=== PATIENT | female | born 1960 | race Caucasian/White ===

== ENCOUNTER 2023-08-16 12:06 | Inpatient (IN) ==
[2023-08-16 13:02] LABS: Basophils # (auto) 0.04 K/uL (0.00-0.20); Basophils % (auto) 0.4 %; Eosinophils # (auto) 0.62 K/uL (0.00-0.50); Eosinophils % (auto) 6.4 %; Hematocrit (blood only) 33.7 % (37.0-47.0); Immature Granulocytes # (auto) 0.03 K/uL (0.01-0.20); Immature Granulocytes % (auto) 0.3 %; Lymphocytes # (auto) 1.66 K/uL (1.20-3.40); Lymphocytes % (auto) 17.2 %; Mean Corpuscular Hemoglobin 30.1 pg (25.0-34.0); Mean Corpuscular Hgb Conc 32.6 g/dL (32.0-36.0); Mean Corpuscular Volume 92.3 fL (80.0-100.0); Mean Platelet Volume 8.7 fL (9.4-12.4); Monocytes # (auto) 0.94 K/uL (0.11-0.59); Monocytes % (auto) 9.7 %; Neutrophils # (auto) 6.37 K/uL (1.40-6.50); Platelet Count 349 K/uL (130-400); RDW Coefficient of Variation 13.2 % (11.5-14.5); RDW Standard Deviation 44.8 fL (36.4-46.3); Red Blood Count 3.65 M/uL (4.20-5.40); White Blood Count 9.66 K/ul (4.8-10.8)
[2023-08-16] MEDS ORDERED: SODIUM CHLORIDE 0.9% 500 ML IV ONE (13:06)
--- NOTE | 2023-08-16 13:09 | Emergency Department Note ---
Impression & Plan Cellulitis ADMIT ED Provider Note HPI: History obtained from patient. The patient is a 62-year-old female with history of breast cancer, status post left-sided mastectomy on 07/17/[address] Billie Grubbs, presents emergency department with chief complaint of purulent drainage from her mastectomy wounds as well as a swelling increasingly painful mass to the left axillary area that has been increasing in size for the past 3 days. Patient presents with her daughter at the bedside, she states that she has had some increased drainage from her mastectomy scar on the left side over about the past 4 to 5 days with purulent material being expelled from the wound. He did go shopping yesterday and were walking quite often and the red lump inside her left axilla seems to becoming increasingly irritated and was more painful and swollen this morning when she woke up. On arrival here to the ED the patient is hemodynamically stable, she is afebrile on arrival, she is saturating well on room air on my initial assessment. ROS: - Per HPI Differential Diagnosis: Wound cellulitis, abscess, gas-forming infection/necrotizing fasciitis, DVT, lymphadenopathy, amongst other potential pathologies. *Outpatient medications and allergy history reviewed. *Pertinent external medical records reviewed -plastic surgery outpatient note dated 07/31/2023 PE: General: Alert, morbidly obese HEENT: Normocephalic, trachea midline Eyes: Extraocular eye movement is intact, no scleral erythema Pulmonary: Clear to auscultation bilaterally, no wheezing Cardio: Regular rate and rhythm GI: Abdomen is soft to palpation : No suprapubic tenderness MSK: No evidence of trauma or malformation of the extremities, no edema, there is a large tender mass to the anterior/axillary aspect of the left upper extremity without any purulent drainage Skin: Erythema with purulence centrally to surgical wounds noted in the area of left breast excision, there is a large tender mass to the anterior/axillary aspect of the left upper extremity without any purulent drainage, there is no crepitus to palpation of the surrounding soft tissues or pain out of proportion to exam Neuro: Alert, no focal deficits Psychiatric: Cooperative INDEPENDENT INTERPRETATIONS: cafeteria monitor: (As interpreted by myself): - An order was placed for continuous cardiac monitoring - Patient was noted to be in sinus rhythm with a rate of 95 Interventions provided in ED: -IV vancomycin, IV cefepime, IV fluid bolus Medical Decision Making: Shortly after patient arrived, IV was established and lab work ordered, patient was placed on monitoring tech. Lab work shows no leukocytosis, hemoglobin is stable at 11.0, platelet count is normal, CMP does not show any evidence of any critical findings. No acute kidney injury, procalcitonin is low. CT imaging of the left upper extremity was obtained, this does show evidence of a large abscess in the medial aspect of the proximal left upper extremity as well as a second abscess noted within the chest wall. There is surrounding cellulitis, small focus of gas is also noted by the interpreting radiologist however patient did recently have a drain removed. Clinical exam is not consistent with necrotizing fasciitis at this time. I discussed the patient's presentation and CT imaging results with on-call general surgery, Dr. Frances, who did review the patient's CT imaging. At this time he is recommending admission and administration of IV antibiotics and general surgery will be on consult for likely operative debridement tomorrow. Patient and her daughter at the bedside are in agreement to this plan, case was then discussed with the on-call midlevel provider for the hospitalist service, Van Ram PA-C, and the patient was placed for admission in stable condition to the service of Dr. Byers. Consultants/Discussions held with other healthcare providers: -General surgery, Dr. Frances -Hospitalist service, Van Ram PA-C / Dr. Byers Disposition discussion held by myself with: -Patient and daughter at bedside Diagnosis: 1. Surgical wound cellulitis, acute 2. Chest wall abscess, acute, associated with surgical wound 3. Left upper extremity abscess, acute, associated with surgical wound 4. History of breast cancer status postmastectomy, left-sided Disposition: Admission Alok Cazares DO Emergency Medicine Past Med/Surg History Medical History (Updated 08/16/23 @ 15:52 by Alok Cazares DO) History of chemotherapy Last chemo 05/2023 History of COVID-19 2019 and 2020- no hosp; resolved HTN (hypertension) Seizures last seizure occurred in the . Breast cancer Left- dx'd 01/2023 (Triple negative breast cancer) R 1980-mastectomy Arthritis Surgical History (Updated 08/16/23 @ 15:10 by Van Ram PA-C) History of left mastectomy Left Breast Mastectomy with [employer] Localization, Left Axillary Lymph Node and [place]estone Node Biopsy(Left) - Millie Jackson DO Port-A-Cath in place (03/06/23) Insertion Access Port(Left) - Millie Jackson DO History of breast biopsy History of hysterectomy (07/17/23) H/O breast implant 1980 - Rt H/O mastectomy 1980 - Rt Family History Father Diabetes Heart disease Leukemia Hypertension Stroke Mother Diabetes Heart disease Kidney disease Hypertension Grandmother Stroke Other No family history of adverse response to anesthesia Social History Smoking Status: Never smoker Second Hand Exposure: Yes (in the past); Do You Dip or Chew Tobacco: No; Hx Alcohol Use: No Hx Substance Use: No Preferred Language: Albanian Communication Ability: Effective Visual Impairment: No Limitations Floor Coverer Required: No Beliefs That Will Affect Care: None Current Living Situation: Family Feels Safe at Home: Yes Assistive Devices: Glasses Allergies Allergies Allergy/AdvReac Type Severity Reaction Status Date / Time dexamethasone [From Decadron] Allergy Severe Hives Verified 08/05/23 10:12 iodine Allergy Unknown Hives Verified 08/05/23 10:12 prednisone Allergy Unknown Hives Verified 08/05/23 10:12 Home Meds Home Medications Medication Instructions Recorded Confirmed aspirin 81 mg tablet,delayed 81 mg PO DAILY 01/22/23 08/16/23 release lisinopril 10 1 tab PO QAM 01/22/23 08/16/23 mg-hydrochlorothiazide 12.5 mg tablet docusate sodium 100 mg capsule 100 mg PO DAILY 06/30/23 08/16/23 (Colace) Previous Rx's Medication Instructions Recorded collagenase clostridium histo. 250 1 applic topical DAILY #90 grams 07/31/23 unit/gram topical ointment (Santyl) Results & Data (ED) Vital Signs Vital Signs - 24 hr 08/16/23 12:10 08/16/23 12:59 08/16/23 14:06 Temperature 36.3 C L 36.4 C L Temperature Source Oral Oral Pulse Rate 91 H Pulse Rate [Left Finger] 94 H 88 Respiratory Rate 19 16 16 Respiratory Effort / Characteristics Non-Labored Spontaneous Non-Labored Spontaneous Respiratory Depth Normal Normal Respiratory Pattern Regular Regular Blood Pressure 136/80 Blood Pressure [Right Arm] 108/76 Blood Pressure Mean 98 Blood Pressure Mean [Right Arm] 86 Blood Pressure Position [Right Arm] Lying Pulse Oximetry 96 98 98 Oxygen Delivery Method Room Air Room Air Room Air Sepsis Recent Fever Within 48 Hours No Sepsis New/Unexplained Change in Mental Status N/A Sepsis Action Taken by Nursing No Action Required 08/16/23 15:39 Temperature Temperature Source Pulse Rate Pulse Rate [Left Finger] 93 H Respiratory Rate 18 Respiratory Effort / Characteristics Non-Labored Spontaneous Respiratory Depth Normal Respiratory Pattern Blood Pressure Blood Pressure [Right Arm] 132/62 Blood Pressure Mean Blood Pressure Mean [Right Arm] 85 Blood Pressure Position [Right Arm] Pulse Oximetry 100 Oxygen Delivery Method Room Air Sepsis Recent Fever Within 48 Hours Sepsis New/Unexplained Change in Mental Status Sepsis Action Taken by Nursing Laboratory Data 08/16/23 12:46 08/16/23 12:46 Lab Results 08/16/23 Range/Units 12:46 WBC 9.66 (4.8-10.8) K/ul RBC 3.65 L (4.20-5.40) M/uL Hgb 11.0 L (12.0-16.0) g/dl Hct 33.7 L (37.0-47.0) % MCV 92.3 (80.0-100.0) fL MCH 30.1 (25.0-34.0) pg MCHC 32.6 (32.0-36.0) g/dL RDW Std Deviation 44.8 (36.4-46.3) fL RDW Coeff of Ronnie 13.2 (11.5-14.5) % Plt Count 349 (130-400) K/uL MPV 8.7 L (9.4-12.4) fL Immature Gran % (Auto) 0.3 % Neut % (Auto) 66.0 % Lymph % (Auto) 17.2 % [place] % (Auto) 9.7 % Eos % (Auto) 6.4 % Baso % (Auto) 0.4 % Neut # (Auto) 6.37 (1.40-6.50) K/uL Lymph # (Auto) 1.66 (1.20-3.40) K/uL [place] # (Auto) 0.94 H (0.11-0.59) K/uL Eos # (Auto) 0.62 H (0.00-0.50) K/uL Baso # (Auto) 0.04 (0.00-0.20) K/uL Immature Gran # (Auto) 0.03 (0.01-0.20) K/uL PT 10.9 (9.0-12.0) Seconds INR 1.0 (0.9-1.1) APTT 31.1 H (21.0-31.0) Seconds PTT Ratio 1.1 Sodium 139 (136-145) mmol/L Potassium 3.6 (3.5-5.1) mmol/L Chloride 103 (98-107) mmol/L Carbon Dioxide 28 (21-32) mmol/L Anion Gap 8 (3-11) BUN 14 (6-23) mg/dl Creatinine 0.78 (0.6-1.2) mg/dl Est Cr Clr Drug Dosing 110.1 ml/min Est GFR ( Amer) 93.8 ml/min Est GFR (Non-Af Amer) 80.9 ml/min BUN/Creatinine Ratio 17.9 (10-20) Glucose 102 H (70-99(Fasting)) mg/dl Calcium 10.1 (8.6-10.3) mg/dl Total Bilirubin 0.6 (0.2-1.0) mg/dl AST 13 (13-39) U/L ALT 11 (7-52) U/L Alkaline Phosphatase 54 (34-104) U/L Total Protein 7.3 (6.0-8.3) gm/dl Albumin 3.9 (3.4-5.0) gm/dl Globulin 3.4 (2.5-4.0) gm/dl Albumin/Globulin Ratio 1.1 (0.9-2) Procalcitonin < 0.05 (0-0.5) ng/ml Administered Medications Discontinued Medications Sodium Chloride (Nss) 500 mls @ 999 mls/hr IV .Q31M ONE Stop: 08/16/23 13:36 Last Infusion: 08/16/23 14:42 Dose: Infused Documented By: Admin: 08/16/23 13:29 Dose: 999 mls/hr Documented By: CPB Cefepime HCl (Maxipime) 2,000 mg in 20 mls @ 5 mls/min IV NOW STA; Protocol Stop: 08/16/23 14:57 Last Admin: 08/16/23 15:34 Dose: 5 mls/min Documented By: FABY Ioversol (Optiray 320 500ml) 94 ml IV ONCE ONE Stop: 08/16/23 13:43 Last Admin: 08/16/23 13:42 Dose: 94 ml Documented By: LOS Imaging Data Radiologist's Impression: Humerus CT 08/16/23 13:02 CT humerus LT w con CLINICAL HISTORY: UE mass eval for infection/abscess TECHNIQUE: Multidetector row helical CT of the left humerus was performed without intravenous contrast. Coronal and sagittal reformations were obtained. Automated dose lowering techniques and/or adjustment according to patient size were utilized for this examination. CT DOSE: 557.87 mGy.cm Comparison: None available at the time of this dictation. FINDINGS: There is a fluid collection measuring 40 x 26 x 36 mm in the medial aspect of the left upper arm with mild surrounding enhancement and surrounding soft tissue edema and skin thickening. There is also a 9 x 8 x 25 mm fluid collection in the lateral chest wall. No acute fractures and the joints are unremarkable. No joint effusion is seen. A port catheter is seen in the left chest wall. A tiny focus of gas is noted in the chest wall. IMPRESSION: Abscess is in the lateral chest wall and medial upper arm with associated cellulitis.. No evidence of bony involvement. Tiny focus of gas in the chest wall may represent gas-forming infection, less likely postsurgical given time course. ACT 112: Negative or not required by law. Electronically signed by: Rufino Prater M.D. 08/16/2023 2:25 PM Discharge Plan Visit Data Chief Complaint: Skin Problem Stated Complaint: LUMP UNDER LEFT ARM S/P MASTECTOMY ED Provider: Alok Cazares Discharge Problem: Cellulitis Forms Stand Alone Forms: My [facility] [employer] Prescriptions Prescriptions: No Action docusate sodium [Colace] 100 mg capsule 100 mg PO DAILY aspirin 81 mg tablet,delayed release (DR/EC) 81 mg PO DAILY Hold Instructions: Resume on 03/09/23. May resume on Thursday if you do not notice heavy swelling or bruising at the surgical site. lisinopril-hydrochlorothiazide 10-12.5 mg tablet 1 tab PO QAM Santyl 250 unit/gram ointment 1 applic topical DAILY Qty: 90 0RF Referrals Referrals: Jose Antonio Fraire [Primary Care Provider] - Discharge Problem: Cellulitis Qualifiers: Site of cellulitis: extremity Site of cellulitis of extremity: axilla L aterality: left Qualified Code(s): L03.112 - Cellulitis of left axilla
[2023-08-16 13:20] LABS: Albumin Globulin Ratio 1.1 (0.9-2); Albumin Level 3.9 gm/dl (3.4-5.0); BUN Creatinine Ratio 17.9 (10-20); Bilirubin,Total 0.6 mg/dl (0.2-1.0); Calcium 10.1 mg/dl (8.6-10.3); Creatinine Clr Calc Pharmacy 110.1 ml/min; Est GFR (African American) 93.8 ml/min; Est GFR (Non-African American) 80.9 ml/min; Globulin 3.4 gm/dl (2.5-4.0); Potassium 3.6 mmol/L (3.5-5.1); Total Protein 7.3 gm/dl (6.0-8.3)
[2023-08-16 13:29] LABS: Partial Thromboplastin Ratio 1.1; Partial Thromboplastin Time 31.1 Seconds (21.0-31.0); Prothrombin Time 10.9 Seconds (9.0-12.0)
[2023-08-16] MEDS ORDERED: OPTIRAY 320 500ml IV ONE (13:42)
--- NOTE | 2023-08-16 14:28 | CT Scan Report ---
CT humerus LT w con CLINICAL HISTORY: UE mass eval for infection/abscess TECHNIQUE: Multidetector row helical CT of the left humerus was performed without intravenous contras t. Coronal and sagittal reformations were obtained. Automated dose lowering techniques and/or adjustm ent according to patient size were utilized for this examination. CT DOSE: 557.87 mGy.cm Comparison: None available at the time of this dictation. FINDINGS: There is a fluid collection measuring 40 x 26 x 36 mm in the medial aspect of the left upper arm with mild surrounding enhancement and surrounding soft tissue edema and skin thickening. There is also a 9 x 8 x 25 mm fluid collection in the lateral chest wall. No acute fractures and the joints are unrem arkable. No joint effusion is seen. A port catheter is seen in the left chest wall. A tiny focus of gas is noted in the chest wall. IMPRESSION: Abscess is in the lateral chest wall and medial upper arm with associated cellulitis.. No evidence of bony involvement. Tiny focus of gas in the chest wall may represent gas-forming infection, less like ly postsurgical given time course. ACT 112: Negative or not required by law. Electronically signed by: Rufino Prater M.D. 08/16/2023 2:25 PM
[2023-08-16] MEDS ORDERED: VANCOMYCIN HCL 2,750 MG in SODIUM CHLORIDE 0.9% 500 ML IV ONE (14:54)
[2023-08-16] MEDS ORDERED: VANCOMYCIN CONSULT ACTIVE PRN ×2 (14:54→18:01)
[2023-08-16] MEDS ORDERED: CEFEPIME 2,000 MG/20 ML VIAL IV STA (14:54)
--- NOTE | 2023-08-16 15:14 | History & Physical Report ---
Date of Service August 16, 2023 Assessment & Plan (1) S/P left mastectomy: Plan: On 07/17/[address] Billie Grubbs Left mastectomy site redness, swelling, purulent drainage x3 days Drain pulled [address] noted 2 abscesses (Lateral chest wall and medial upper arm) with associated cellulitis; also noted tiny focus of gas in the chest wall Started on vancomycin and cefepime in the ED Dr. Frances was contacted; Dr. Victor M Grubbs will not be back until Thursday Plan is to go to the OR either Friday 08/17 or Saturday 08/18 Wound culture pending No leukocytosis; afebrile; PCT WNL Vancomycin 2000 mg IV q12h; Vanco consult Cefepime 2000 mg IV q8h Clindamycin 600 mg IV q8h Probiotic 2 times daily Acetaminophen 650 mg p.o. as needed for pain/fever Hold aspirin; taken for primary prevention A.m. CBC, BMP N.p.o. at midnight (2) Triple negative breast cancer: Plan: Right -1981 mastectomy Left - Dx 01/2023; ER neg; BRCA gene mutation neg; s/p mastectomy on 07/17/23 (3) Hypertension: Plan: Hold lisinoprilhydrochlorothiazide before going to the OR Plan [facility]: [facility] Regular diet, then n.p.o. at midnight VTE PPx: SCDs (will hold chemical DVT PPx in the event she goes to the OR on 08/17) History of Present Illness Chief Complaint: L mastectomy surgical site infection Primary Care Provider: Jose Antonio Ramirez is a pleasant 62-year-old female with PMH of breast cancer. She presented for purulent drainage from her left mastectomy site, with increased pain and swelling in the left axilla x3 days. Patient is s/p left-sided mastectomy on 07/17/[address] Billie Grubbs. Patient had drain removed on 08/05 and then noticed a "white pocket" in the left axilla on 08/07. She started using collagenase SANTYL cream on the . She then started to note purulent yellowish, greenish drainage on 08/09, that would run down her arm. Patient was back Thursday shopping on 08/14; she had dressing/tape over the incision site and wore a soft bra to give thing in place; but when she changed the dressing on Thursday she noticed a "baseball sized" red lump on her left upper arm. At present, she notes no pain but describes it as left upper arm "tightness". She denies radiation; no numbness running down the arm. She took Advil and Motrin last night, which helped. She also has been using a bacitracin/neomycin ointment "Vitacilina", which she last applied this morning. No sick contacts. She denies tobacco/alcohol use. Vital stable at time of admission. ED course: Vancomycin 2750 mg IV Cefepime 2000 mg IV NSS 500 mL ROS: Patient endorses cold intolerance, mental fog, back pain (which patient attributes to sitting position with recent travel), swelling in feet / neuropathy, skin irritation (skin is "like paper" per daughter), constipation, neuropathy in the legs (from the knees down) Patient denies fevers, chills, night-sweats, chest pain, cough, SOB, abdominal pain, N/V/D, urinary s/s, burning with urination. Allergies Allergy/AdvReac Type Severity Reaction Status Date / Time dexamethasone [From Decadron] Allergy Severe Hives Verified 08/05/23 10:12 iodine Allergy Unknown Hives Verified 08/05/23 10:12 prednisone Allergy Unknown Hives Verified 08/05/23 10:12 Home Medications Medication Instructions Recorded Confirmed Type aspirin 81 mg tablet,delayed 81 mg PO DAILY 01/22/23 08/16/23 History release lisinopril 10 1 tab PO QAM 01/22/23 08/16/23 History mg-hydrochlorothiazide 12.5 mg tablet docusate sodium 100 mg capsule 100 mg PO DAILY 06/30/23 08/16/23 History (Colace) collagenase clostridium histo. 250 1 applic topical DAILY #90 grams 07/31/23 08/16/23 Rx unit/gram topical ointment (Santyl) Past Med/Surg History Medical History (Updated 08/16/23 @ 15:52 by Alok Cazares DO) History of chemotherapy Last chemo 05/2023 History of COVID-19 2019 and 2020- no hosp; resolved HTN (hypertension) Seizures last seizure occurred in the . Breast cancer Left- dx'd 01/2023 (Triple negative breast cancer) R 1980-mastectomy Arthritis Surgical History (Updated 08/16/23 @ 15:10 by Vna Ram PA-C) History of left mastectomy Left Breast Mastectomy with [facility] Laboratory Director Localization, Left Axillary Lymph Node and [place] Node Biopsy(Left) - Millie Jackson DO Port-A-Cath in place (03/06/23) Insertion Access Port(Left) - Millie Jackson DO History of breast biopsy History of hysterectomy (07/17/23) H/O breast implant 1980 - Rt H/O mastectomy 1980 - Rt Family History Father Diabetes Heart disease Leukemia Hypertension Stroke Mother Diabetes Heart disease Kidney disease Hypertension Grandmother Stroke Other No family history of adverse response to anesthesia Social History Smoking Status: Never smoker Second Hand Exposure: Yes (in the past); Do You Dip or Chew Tobacco: No; Hx Alcohol Use: No Hx Substance Use: No Preferred Language: Romanian Communication Ability: Effective Visual Impairment: No Limitations Drawing Operator Required: No Beliefs That Will Affect Care: None Current Living Situation: Family Feels Safe at Home: Yes Assistive Devices: Glasses Review of Systems 2 Review of Systems: See HPI above Physical Exam 2 Physical Exam: General: no acute distress; non-toxic appearing; well-nourished; cooperative HEENT: normocephalic, atraumatic; no scleral icterus; PERRLA w/ EOMs intact; moist mucus membrane; vision and hearing grossly intact Neck: supple; no lymphadenopathy; trachea midline Skin: warm, dry without signs of tenting; no cyanosis; no rashes, bruising, lesions, or erythema noted CV: Double mastectomy; chest wall NTP; RRR; S1/S2 normal; no murmurs/rubs/gallops; pulses intact and symmetric at radial, DP, and PT Lungs: no acute respiratory distress; symmetrical chest wall expansion; clear breath sounds across all lung del real w/o adventitious sounds; no wheezing Left breast/surgical site: Purulent drainage is noted from the site including a 2in eschar at the left axilla; left upper arm has baseball sized redness, swelling, and firmness, and is warm to touch (see photo below); no crepitus on palpation; no subcutaneous emphysema on palpation Left hand: Pulse intact in the radial/ulnar; patient demonstrates ability to wiggle fingers; sensation is grossly intact in the left arm ABD: Soft, NTP; BS present; no rebound/guarding; no ascites; no distention; negative CVA tenderness MSK: no tics or fasciculations; nonpitting edema in the LEs B/L, nonerythematous Neuro: A&Ox3; normal mood and affect; fluent speech; no focal deficits; sensation grossly intact Results & Data Results & Data Vital Signs (Past 12 Hours) Vital Signs Temp Pulse Pulse Resp BP BP Pulse Ox 08/16/23 14:06 88 16 98 08/16/23 12:59 36.4 C L 94 H 16 108/76 98 08/16/23 12:10 36.3 C L 91 H 19 136/80 96 O2 Del Method 08/16/23 14:06 Room Air 08/16/23 12:59 Room Air 08/16/23 12:10 Room Air Laboratory Results Abnormal lab results 08/16/23 Range/Units 12:46 RBC 3.65 L (4.20-5.40) M/uL Hgb 11.0 L (12.0-16.0) g/dl Hct 33.7 L (37.0-47.0) % MPV 8.7 L (9.4-12.4) fL [place] # (Auto) 0.94 H (0.11-0.59) K/uL Eos # (Auto) 0.62 H (0.00-0.50) K/uL APTT 31.1 H (21.0-31.0) Seconds Glucose 102 H (70-99(Fasting)) mg/dl Diagnostic Findings Humerus CT 08/16/23 13:02 CT humerus LT w con CLINICAL HISTORY: UE mass eval for infection/abscess TECHNIQUE: Multidetector row helical CT of the left humerus was performed without intravenous contrast. Coronal and sagittal reformations were obtained. Automated dose lowering techniques and/or adjustment according to patient size were utilized for this examination. CT DOSE: 557.87 mGy.cm Comparison: None available at the time of this dictation. FINDINGS: There is a fluid collection measuring 40 x 26 x 36 mm in the medial aspect of the left upper arm with mild surrounding enhancement and surrounding soft tissue edema and skin thickening. There is also a 9 x 8 x 25 mm fluid collection in the lateral chest wall. No acute fractures and the joints are unremarkable. No joint effusion is seen. A port catheter is seen in the left chest wall. A tiny focus of gas is noted in the chest wall. IMPRESSION: Abscess is in the lateral chest wall and medial upper arm with associated cellulitis.. No evidence of bony involvement. Tiny focus of gas in the chest wall may represent gas-forming infection, less likely postsurgical given time course. ACT 112: Negative or not required by law. Electronically signed by: Rufino Prater M.D. 08/16/2023 2:25 PM Code Status & VTE Plan Code Status DNR/DNI VTE Prophylaxis Plan VTE Prophylaxis will be ordered: Yes Supervising Physician Co-Signing Physician Notes Patient seen and examined, chart reviewed, case discussed with AGATHA Davis and I agree with the assessment and plan as above except as otherwise noted Labs and images reviewed Ashley is a 62-year-old female with a past medical history of breast cancer s/p L mastectomy on 07/17/2023. She was doing well and recovering well until approximately 1 week ago when she started using a Centyl cream. She reports that she had some yellowish discharge with this but attributes this to the cream. Following this was doing very well up until last night when she felt like she could not get warm. She noticed just in the last day that she has left proximal inner arm swelling which is new and with overlying erythema, and she has had foul-smelling drainage from the left breast surgical site which has been slowly closing (see image above). She has not had fevers. She has not had chills or night sweats. She otherwise feels well other than some of the pressure in her arm. On exam site is as pictured above. No crepitus or subcu emphysema is appreciated. Is normotensive, heart rate is regular slightly tachycardic. No acute distress. Her drain was removed at follow-up appointment 08/05/2023. CT shows an abscess in the lateral chest wall and upper arm with associated cellulitis without ostial involvement. Tiny focus of gas is noted on the left chest wall, drain was removed 10 days ago potential gas-forming infection is not excluded. Agree with broad coverage of antibiotics cefepime/vancomycin/clindamycin as above, surgery has been consulted and anticipate operative intervention 08/17 or 08/18. N.p.o. at midnight. Agree with assessment and management as above. Lillian Lord daughter is available for updates at work at : [phone]. Works at [employer], ask for Lillian at the switchboard. PG Care Time/CCT Total # of Minutes Spent Total Time Spent with Patient: Total time spent is greater than 50% in coordination of care (as documented) at patient's floor/unit and/or counseling patient: C[place] [address] INT INP/OBS CARE 2/55MIN Patient Type Established Medical Decision Making Moderate Complexity Diagnoses S/P left mastectomy Z90.12 Triple negative breast cancer C50.919 Hypertension I10
[2023-08-16 16:43] LABS: Magnesium 1.5 mg/dl (1.7-2.4)
--- NOTE | 2023-08-16 17:00 | Surgery Consultation ---
Date of Consultation August 16, 2023 Assessment & Plan (1) Cellulitis: 62-year-old female with late presenting surgical site infection with cellulitis and developing abscess in the left axilla. Patient admitted to the medicine service, appreciate their assistance with this Continue IV antibiotic Likely plan for incision and drainage in the operating room on Thursday with Dr. Billie Grubbs She can be made n.p.o. tonight in case we need to take her to the OR sooner Surgery will follow, call with questions or concern (2) S/P left mastectomy: (3) Triple negative breast cancer: History of Present Illness History of Present Illness 62-year-old female with recent history of mastectomy and x-ray lymph node biopsy on the left by Dr. Billie Grubbs 1 month ago, presented with cellulitis. She had the drains pulled about a week or 2 ago, started having some drainage and redness along the area. She has been followed in the clinic for this. Over the weekend things got significantly worse and she had swelling into her left axilla and left upper arm. CT scan was performed and showed a fluid collection is consistent with an abscess in her left axilla. No fevers. Allergies Allergy/AdvReac Type Severity Reaction Status Date / Time dexamethasone [From Decadron] Allergy Severe Hives Verified 08/05/23 10:12 iodine Allergy Unknown Hives Verified 08/05/23 10:12 prednisone Allergy Unknown Hives Verified 08/05/23 10:12 Home Medications Medication Instructions Recorded Confirmed Type aspirin 81 mg tablet,delayed 81 mg PO DAILY 01/22/23 08/16/23 History release lisinopril 10 1 tab PO QAM 01/22/23 08/16/23 History mg-hydrochlorothiazide 12.5 mg tablet docusate sodium 100 mg capsule 100 mg PO DAILY 06/30/23 08/16/23 History (Colace) collagenase clostridium histo. 250 1 applic topical DAILY #90 grams 07/31/23 08/16/23 Rx unit/gram topical ointment (Santyl) Patient History Medical History (Updated 08/16/23 @ 15:52 by Alok Cazares DO) History of chemotherapy Last chemo 05/2023 History of COVID-19 2019 and 2020- no hosp; resolved HTN (hypertension) Seizures last seizure occurred in the . Breast cancer Left- dx'd 01/2023 (Triple negative breast cancer) R 1981-mastectomy Arthritis Surgical History (Updated 08/16/23 @ 15:10 by Van Ram PA-C) History of left mastectomy Left Breast Mastectomy with Char Manager Stars Localization, Left Axillary Lymph Node and [place] Node Biopsy(Left) - Millie Jackson DO Port-A-Cath in place (03/06/23) Insertion Access Port(Left) - Millie Jackson DO History of breast biopsy History of hysterectomy (07/17/23) H/O breast implant 1980 - Rt H/O mastectomy 1980 - Rt Family History Father Diabetes Heart disease Leukemia Hypertension Stroke Mother Diabetes Heart disease Kidney disease Hypertension Grandmother Stroke Other No family history of adverse response to anesthesia Social History Smoking Status: Never smoker Second Hand Exposure: Yes (in the past); Do You Dip or Chew Tobacco: No; Hx Alcohol Use: No Hx Substance Use: No Preferred Language: Danish Communication Ability: Effective Visual Impairment: No Limitations Quill Layer Required: No Beliefs That Will Affect Care: None Current Living Situation: Family Feels Safe at Home: Yes Assistive Devices: Glasses Review of Systems Review of Systems: All systems reviewed & are unremarkable except as noted in HPI & below Physical Exam Constitutional: WD/WN, vitals as above Respiratory: normal respiratory effort, lungs clear to auscultation Cardiovascular: RRR, no murmur, no edema Chest (Breasts): Chest: + vascular access device or port Additional Comments: Significant cellulitis along left chest and left axilla extending down medial portion of left upper arm. There is a firm area consistent with an abscess in her left axilla/left upper medial arm. She also has some fibrinous exudate along her mastectomy incision and at the site of her old drains. This is consistent with a cellulitis and axillary abscess Results & Data Vital Signs (Past 12 Hours) Vital Signs Temp Pulse Pulse Resp BP BP Pulse Ox 08/16/23 15:39 93 H 18 132/62 100 08/16/23 14:06 88 16 98 08/16/23 12:59 36.4 C L 94 H 16 108/76 98 08/16/23 12:10 36.3 C L 91 H 19 136/80 96 O2 Del Method 08/16/23 15:39 Room Air 08/16/23 14:06 Room Air 08/16/23 12:59 Room Air 08/16/23 12:10 Room Air Laboratory Results Laboratory Results - last 24 hr 08/16/23 12:46 WBC 9.66 RBC 3.65 L Hgb 11.0 L Hct 33.7 L MCV 92.3 MCH 30.1 MCHC 32.6 RDW Std Deviation 44.8 RDW Coeff of Ronnie 13.2 Plt Count 349 MPV 8.7 L Immature Gran % (Auto) 0.3 Neut % (Auto) 66.0 Lymph % (Auto) 17.2 [place] % (Auto) 9.7 Eos % (Auto) 6.4 Baso % (Auto) 0.4 Neut # (Auto) 6.37 Lymph # (Auto) 1.66 [place] # (Auto) 0.94 H Eos # (Auto) 0.62 H Baso # (Auto) 0.04 Immature Gran # (Auto) 0.03 PT 10.9 INR 1.0 APTT 31.1 H PTT Ratio 1.1 Sodium 139 Potassium 3.6 Chloride 103 Carbon Dioxide 28 Anion Gap 8 BUN 14 Creatinine 0.78 Est Cr Clr Drug Dosing 110.1 Est GFR ( Amer) 93.8 Est GFR (Non-Af Amer) 80.9 BUN/Creatinine Ratio 17.9 Glucose 102 H Calcium 10.1 Magnesium 1.5 L Total Bilirubin 0.6 AST 13 ALT 11 Alkaline Phosphatase 54 Total Protein 7.3 Albumin 3.9 Globulin 3.4 Albumin/Globulin Ratio 1.1 Procalcitonin < 0.[address] personally reviewed and interpreted and agree with the assessment of left axillary and medial arm abscess and surrounding cellulitis. CLINICAL HISTORY: UE mass eval for infection/abscess TECHNIQUE: Multidetector row helical CT of the left humerus was performed without intravenous contrast. Coronal and sagittal reformations were obtained. Automated dose lowering techniques and/or adjustment according to patient size were utilized for this examination. CT DOSE: 557.87 mGy.cm Comparison: None available at the time of this dictation. FINDINGS: There is a fluid collection measuring 40 x 26 x 36 mm in the medial aspect of the left upper arm with mild surrounding enhancement and surrounding soft tissue edema and skin thickening. There is also a 9 x 8 x 25 mm fluid collection in the lateral chest wall. No acute fractures and the joints are unremarkable. No joint effusion is seen. A port catheter is seen in the left chest wall. A tiny focus of gas is noted in the chest wall. IMPRESSION: Abscess is in the lateral chest wall and medial upper arm with associated cellulitis.. No evidence of bony involvement. Tiny focus of gas in the chest wall may represent gas-forming infection, less likely postsurgical given time course. PG Care Time/CCT Total # of Minutes Spent Total Time Spent with Patient: Total time spent is greater than 50% in coordination of care (as documented) at patient's floor/unit and/or counseling patient: Coding Level of Care Code 89487 OFFICE CONSULT LVL Diagnoses Cellulitis L03.112 Laterality: left Site of cellulitis: extremity Site of cellulitis of extremity: axilla S/P left mastectomy Z90.12 Triple negative breast cancer C50.919 (1) Cellulitis Laterality: left Site of cellulitis: extremity Site of cellulitis of extremity: axilla Qualified Code(s): L03.112 - Cellulitis of left axilla
[2023-08-16] MEDS: CLINDAMYCIN/D5W 600 MG/50 ML BAG IV SCH (19:17)
[2023-08-16] MEDS: ADVANCED PROBIOTIC 1250 MG CAPSULE PO SCH (19:17)
[2023-08-16] MEDS: CEFEPIME 2,000 MG in SYRINGE 0 ML IV SCH (23:03)
[2023-08-17] MEDS: CLINDAMYCIN/D5W 600 MG/50 ML BAG IV SCH ×3 (02:23→18:22)
[2023-08-17] MEDS ORDERED: VANCOMYCIN HCL 1,000 MG in SODIUM CHLORIDE 0.9% 250 ML IV SCH (04:00)
[2023-08-17] MEDS ORDERED: VANCOMYCIN HCL 2,000 MG in SODIUM CHLORIDE 0.9% 500 ML IV SCH (06:00)
[2023-08-17 07:27] LABS: Basophils # (auto) 0.03 K/uL (0.00-0.20); Basophils % (auto) 0.3 %; Eosinophils # (auto) 0.49 K/uL (0.00-0.50); Hematocrit (blood only) 29.5 % (37.0-47.0); Hemoglobin 9.6 g/dl (12.0-16.0); Immature Granulocytes # (auto) 0.03 K/uL (0.01-0.20); Immature Granulocytes % (auto) 0.3 %; Lymphocytes % (auto) 11.3 %; Mean Corpuscular Hemoglobin 29.8 pg (25.0-34.0); Mean Corpuscular Hgb Conc 32.5 g/dL (32.0-36.0); Mean Corpuscular Volume 91.6 fL (80.0-100.0); Mean Platelet Volume 8.8 fL (9.4-12.4); Monocytes % (auto) 10.2 %; Neutrophils # (auto) 7.12 K/uL (1.40-6.50); Neutrophils % (auto) 72.9 %; Platelet Count 319 K/uL (130-400); RDW Coefficient of Variation 13.3 % (11.5-14.5); RDW Standard Deviation 44.6 fL (36.4-46.3); Red Blood Count 3.22 M/uL (4.20-5.40); White Blood Count 9.77 K/ul (4.8-10.8)
[2023-08-17 07:51] LABS: BUN Creatinine Ratio 14.3 (10-20); Calcium 9.4 mg/dl (8.6-10.3); Creatinine Clr Calc Pharmacy 153.2 ml/min; Est GFR (Non-African American) 99.2 ml/min; Potassium 3.5 mmol/L (3.5-5.1)
--- NOTE | 2023-08-17 09:40 | Pharmacy Report ---
Pharmacy PK ABX Note - Date of Service August 17, 2023 - Assessment and Plan Assessment 62 year old F receiving CEFEPIME/VANCOMYCIN/CLINDAMYCIN for treatment of left breast cellulitis/abscess (s/p mastectomy site (07/17)), last chemotherapy 06/13. Pertinent microbiologic data includes: left breast surface would culture pending (gram stain with GPCs), blood cultures pending. Plan for I&D in OR 08/17 or 08/18 Day # 2 of antimicrobial therapy. Plan Vancomycin * Loading dose: 2750 mg IV x 1 * Maintenance dose: 1500 mg IV every 12 hours (increased from 1000mg Q12H due to better probability of reaching goal range and severity of infection) * Regimen is predicted to achieve target AUC/RIZWAN of 400-600 mg/L.hr * Vancomycin level to be ordered if continued beyond 48 hours * Daily serum creatinine ordered. Pharmacy will continue to follow and will adjust dose/frequency as necessary. Thank you. Pharmacy has transitioned to AUC monitoring for vancomycin. AUC/RIZWAN is the preferred PK/PD target and is associated with decreased risk of nephrotoxicity compared to traditional trough targets.
[2023-08-17] MEDS: CEFEPIME 2,000 MG in SYRINGE 0 ML IV SCH ×2 (09:41→16:46)
[2023-08-17] MEDS: DOCUSATE SODIUM 100 MG CAP PO SCH (09:41)
--- NOTE | 2023-08-17 10:42 | Surgery Progress Note ---
<Statement entered by Millie Jackson, DO - 08/18/23 13:23> This case was discussed with the surgical PA Date of Service August 17, 2023 Assessment & Plan (1) Cellulitis: Plan: Patient reports she was seen last week in the office by Dr. Garcia and Dr. Almaraz Is unsure if post operative surgical incision was open as she cannot see the area but does note that she was told it was looking "soft and moist" Reports that left arm cellulitis started on Thursday Left chest post operative incisional area has an open area with some slough and drainage noted Left arm cellulitis warm, tender, with induration Spoke with Dr. Jackson about case, US showing There is a fluid collection measuring 40 x 26 x 36 mm in the medial aspect of the left upper arm with mild surrounding enhancement and surrounding soft tissue edema and skin thickening. There is also a 9 x 8 x 25 mm fluid collection in the lateral chest wall. No acute fractures and the joints are unremarkable. No joint effusion is seen. A port catheter is seen in the left chest wall. A tiny focus of gas is noted in the chest wall WBC 9.7 Will plan for patient to have IR drain the Left fluid collection measuring 40 x 26 x 36 mm in the medial aspect of the left upper arm Will send the fluid for culture Continue IV antibiotics May have diet after IR drain and NPO at MN (2) S/P left mastectomy: Admission and Anticipated Discharge Date Admission Date: August 16, 2023 Subjective Patient reports she was seen last week in the office by Dr. Garcia and Dr. Almaraz Is unsure if post operative surgical incision was open as she cannot see the area but does note that she was told it was looking "soft and moist" Reports that left arm cellulitis started on Thursday Review of Systems Constitutional: no fever and no chills Respiratory: no dyspnea Cardiovascular: no chest pain Integumentary: Left chest post operative incision Physical Exam Physical Exam: alert oriented Constitutional: cooperative and comfortable; no acute distress Respiratory: normal respiratory effort and able to speak in complete sentences; no respiratory distress Cardiovascular: Rate/Rhythm: + tachycardic (98) Chest (Breasts): Additional Comments: Left chest post operative incisional area has an open area with some slough and drainage noted, Left arm cellulitis warm and tender Results & Data Vital Signs (Past 12 Hours) Vital Signs Temp Pulse Resp BP Pulse Ox O2 Del Method 08/17/23 07:13 98.8 F 98 H 20 120/73 95 Room Air Diagnostic Findings [place], [place] [phone] CT Scan Report Patient: ELIZABETH JUNIOR Admit Date: 08/16/23 MR#: [id number] Address1: [id number] [place] [address] Acct ID:[id number] Address2: Date: 1960 [facility] Zip: [place] [address] Age: 62 Location: ED Sex: F Room/Bed: Att Phy: Diagnosis: LUMP UNDER LEFT ARM S/P MASTECTOMY Corie Phy: Jose Antonio Fraire M.D. Service Date: 08/16/23 Fam Phy: Interpreting Phy: Rufino Prater MDAdmit Phy: Ordering Phy: Alok Cazares DO cc: ~ CT humerus LT w con CLINICAL HISTORY: UE mass eval for infection/abscess TECHNIQUE: Multidetector row helical CT of the left humerus was performed without intravenous contrast. Coronal and sagittal reformations were obtained. Automated dose lowering techniques and/or adjustment according to patient size were utilized for this examination. CT DOSE: 557.87 mGy.cm Comparison: None available at the time of this dictation. FINDINGS: There is a fluid collection measuring 40 x 26 x 36 mm in the medial aspect of the left upper arm with mild surrounding enhancement and surrounding soft tissue edema and skin thickening. There is also a 9 x 8 x 25 mm fluid collection in the lateral chest wall. No acute fractures and the joints are unremarkable. No joint effusion is seen. A port catheter is seen in the left chest wall. A tiny focus of gas is noted in the chest wall. IMPRESSION: Abscess is in the lateral chest wall and medial upper arm with associated cellulitis.. No evidence of bony involvement. Tiny focus of gas in the chest wall may represent gas-forming infection, less likely postsurgical given time course. ACT 112: Negative or not required by law. Electronically signed by: Rufino Prater M.D. 08/16/2023 2:25 PM Dictated: 08/16/23 141 Transcribed: 08/16/231415 PG Care Time/CCT Total # of Minutes Spent Total Time Spent with Patient: Total time spent is greater than 50% in coordination of care (as documented) at patient's floor/unit and/or counseling patient: Coding Level of Care Code 87278 Post Operative Follow-Up Diagnoses Cellulitis L03.112 Laterality: left Site of cellulitis: extremity Site of cellulitis of extremity: axilla S/P left mastectomy Z90.12 (1) Cellulitis Laterality: left Site of cellulitis: extremity Site of cellulitis of extremity: axilla Qualified Code(s): L03.112 - Cellulitis of left axilla
[2023-08-17] MEDS ORDERED: ONDANSETRON INJ 2 MG/ML 2 ML VIAL IV PRN (12:34)
--- NOTE | 2023-08-17 12:40 | Ultrasound Report ---
ULTRASOUND-GUIDED LEFT AXILLARY FLUID COLLECTION ASPIRATION CLINICAL HISTORY: Left axillary fluid collection/abscess COMPARISON STUDY: CT scan of the left humerus dated 08/16/2023. PROCEDURE: Procedure and risks were explained. Informed consent was obtained. A final timeout was com pleted. The left axilla was prepped and draped in sterile fashion. 1% buffered lidocaine was utilized for skin anesthesia. Utilizing ultrasound guidance, a 5 Greek safety centesis catheter was advanced into the left axillar y fluid collection/abscess. Ultrasound images were obtained. Approximately 30 mL of purulent fluid wa s aspirated and sent to the lab for culture analysis. The catheter was removed and Band-Aid applied.. The patient tolerated the procedure well. IMPRESSION: Left axillary fluid collection aspiration as detailed above. Performed, dictated, and signed by Julio García PA-C; to be co-signed by Dr. Marcus Clemente. Electronically signed by: Marcus Clemente M.D. 08/17/2023 4:25 PM
[2023-08-17] MEDS: ADVANCED PROBIOTIC 1250 MG CAPSULE PO SCH (12:45)
--- NOTE | 2023-08-17 14:01 | Ultrasound Report ---
LEFT LOWER EXTREMITY VENOUS DOPPLER HISTORY: Acute pain and swelling of the left lower extremity LLE swelling r/o DVT COMPARISON STUDY: None. FINDINGS: There is normal compressibility, flow, and augmentation within the left lower extremity katelyn p venous system. Subcutaneous edema. IMPRESSION: No DVT within the left lower extremity. ACT 112: Negative or not required by law. Electronically signed by: Yuriy Sol M.D. 08/17/2023 2:00 PM
--- NOTE | 2023-08-17 15:11 | Hospitalist Progress Note ---
Date of Service August 17, 2023 Assessment & Plan (1) S/P left mastectomy: Plan: patient had left-sided mastectomy done on 07/17 Drain removed on 08/05 Patient comes back with redness, swelling, purulent discharge for [address] noted 2 abscesses with associated cellulitis Surgery involved Plan is for IR drainage of the abscess today Will keep patient n.p.o. postmidnight in case further procedures tomorrow Continue vancomycin and cefepime and clindamycin (2) Triple negative breast cancer: Plan: Right -1981 mastectomy Left - Dx 01/2023; ER neg; BRCA gene mutation neg; s/p mastectomy on 07/17/23 (3) Hypertension: Plan: Hold lisinoprilhydrochlorothiazide before going to the OR Plan Disposition: MedSurg DNR/DNI Regular diet, then n.p.o. at midnight VTE PPx: SCDs (will hold chemical DVT PPx in the event she goes to the OR on 08/18) Admission and Anticipated Discharge Date Admission Date: August 16, 2023 Subjective when I met the patient earlier today, she was getting ready to go to IR for drainage Of her abscess. Review of Systems Review of Systems: All systems reviewed & are unremarkable except as noted in Subjective Physical Exam Physical Exam: General: Awake, conversant Left breast/surgical site: Purulent discharge is noted from the site. Inner aspect of Left upper arm is red, swollen, firm and warm to touch. Heart: S1, S2/regular rate and rhythm, no murmur rubs or gallops Lungs: Clear to auscultation bilaterally. Normal effort Abdomen: Soft/nontender/nondistended. No hepatosplenomegaly Extremities: No clubbing/cyanosis. No edema Behavior: Appropriate, cooperative Results & Data Results & Data Vital Signs (Past 12 Hours) Vital Signs Temp Pulse Resp BP Pulse Ox O2 Del Method 08/17/23 14:23 36.8 C 96 H 20 128/84 96 Room Air 08/17/23 07:13 37.1 C 98 H 20 120/73 95 Room Air Laboratory Results Abnormal lab results 08/16/23 08/17/23 Range/Units 12:46 06:57 RBC 3.22 L (4.20-5.40) M/uL Hgb 9.6 L (12.0-16.0) g/dl Hct 29.5 L (37.0-47.0) % MPV 8.8 L (9.4-12.4) fL Neut # (Auto) 7.12 H (1.40-6.50) K/uL Lymph # (Auto) 1.10 L (1.20-3.40) K/uL [place] # (Auto) 1.00 H (0.11-0.59) K/uL Creatinine 0.56 L (0.6-1.2) mg/dl Magnesium 1.5 L (1.7-2.4) mg/dl PG Care Time/CCT Total # of Minutes Spent Total Time Spent with Patient: Total time spent is greater than 50% in coordination of care (as documented) at patient's floor/unit and/or counseling patient: Coding Level of Care Code 13279 SUB INP/OBS CARE 2/35MIN Diagnoses S/P left mastectomy Z90.12 Triple negative breast cancer C50.919 Hypertension I10
[2023-08-17] MEDS: VANCOMYCIN HCL 1,500 MG in SODIUM CHLORIDE 0.9% 500 ML IV SCH (17:21)
[2023-08-17] MEDS: ACETAMINOPHEN 325 MG TAB PO PRN (20:21)
[2023-08-18] MEDS: ACETAMINOPHEN 325 MG TAB PO PRN ×4 (00:15→20:12)
[2023-08-18] MEDS: CEFEPIME 2,000 MG in SYRINGE 0 ML IV SCH ×2 (00:15→09:07)
[2023-08-18] MEDS: CLINDAMYCIN/D5W 600 MG/50 ML BAG IV SCH ×2 (03:27→09:07)
[2023-08-18] MEDS: VANCOMYCIN HCL 1,500 MG in SODIUM CHLORIDE 0.9% 500 ML IV SCH ×2 (04:15→16:38)
[2023-08-18 08:20] LABS: Basophils # (auto) 0.03 K/uL (0.00-0.20); Basophils % (auto) 0.4 %; Eosinophils # (auto) 0.54 K/uL (0.00-0.50); Eosinophils % (auto) 7.1 %; Hematocrit (blood only) 29.8 % (37.0-47.0); Hemoglobin 9.7 g/dl (12.0-16.0); Immature Granulocytes # (auto) 0.02 K/uL (0.01-0.20); Immature Granulocytes % (auto) 0.3 %; Lymphocytes # (auto) 1.12 K/uL (1.20-3.40); Lymphocytes % (auto) 14.7 %; Mean Corpuscular Hemoglobin 30.3 pg (25.0-34.0); Mean Corpuscular Hgb Conc 32.6 g/dL (32.0-36.0); Mean Corpuscular Volume 93.1 fL (80.0-100.0); Mean Platelet Volume 9.6 fL (9.4-12.4); Monocytes # (auto) 0.87 K/uL (0.11-0.59); Monocytes % (auto) 11.4 %; Neutrophils # (auto) 5.03 K/uL (1.40-6.50); Neutrophils % (auto) 66.1 %; Platelet Count 258 K/uL (130-400); RDW Coefficient of Variation 13.4 % (11.5-14.5); RDW Standard Deviation 45.8 fL (36.4-46.3); White Blood Count 7.61 K/ul (4.8-10.8)
[2023-08-18 08:34] LABS: Calcium 8.8 mg/dl (8.6-10.3); Creatinine Clr Calc Pharmacy 150.5 ml/min; Est GFR (African American) 114.3 ml/min; Est GFR (Non-African American) 98.7 ml/min; Potassium 3.6 mmol/L (3.5-5.1)
[2023-08-18] MEDS: ADVANCED PROBIOTIC 1250 MG CAPSULE PO SCH (09:02)
[2023-08-18] MEDS: DOCUSATE SODIUM 100 MG CAP PO SCH (09:06)
--- NOTE | 2023-08-18 10:24 | Surgery Progress Note ---
<Statement entered by Millie Jackson, DO - 08/18/23 13:21> I have seen this patient and examined her. I agree with this plan. Date of Service August 18, 2023 Assessment & Plan (1) S/P left mastectomy: Plan: POD 1 from IR drain Left upper arm abscess Left post operative surgical site with open areas , some mild sloth, axillary wound overed with dark scab, left upper arm cellulitis, abscess drained yesterday by IR, 30cc pulled out and sent to lab for cultures growing Staphylococcus species Continue IV antibiotics clindamycin, Vanco, Maxipime Santyl ordered, apply to open incisional areas BID , cover with dry gauze and small amount of tape VSS, WBC wnl Will assess need for possible bedside debridement tomorrow with Dr. Loco Grubbs Pt seen with Dr. Jackson (2) Cellulitis: Admission and Anticipated Discharge Date Admission Date: August 16, 2023 Subjective Patient resting in bed Pain controlled Had IR drain left upper arm abscess yesterday Review of Systems Respiratory: no dyspnea Cardiovascular: no chest pain Integumentary: + wounds (left chest wall , left arm ) Physical Exam Physical Exam: alert oriented pleasant Constitutional: well developed, cooperative and comfortable; no acute distress Respiratory: normal respiratory effort and able to speak in complete sentences; no respiratory distress Cardiovascular: Rate/Rhythm: regular rate Chest (Breasts): Additional Comments: Left post operative surgical site with open areas , some mild sloth, axillary overed with dark scab, left upper arm cellulitis drained yesterday by IR Results & Data Vital Signs (Past 12 Hours) Vital Signs Temp Pulse Resp BP Pulse Ox O2 Del Method 08/18/23 07:39 97.9 F 81 18 121/77 96 Room Air PG Care Time/CCT Total # of Minutes Spent Total Time Spent with Patient: Total time spent is greater than 50% in coordination of care (as documented) at patient's floor/unit and/or counseling patient: Coding Level of Care Code 43167 Post Operative Follow-Up Diagnoses S/P left mastectomy Z90.12 Cellulitis L03.112 Laterality: left Site of cellulitis: extremity Site of cellulitis of extremity: axilla (2) Cellulitis Laterality: left Site of cellulitis: extremity Site of cellulitis of extremity: axilla Qualified Code(s): L03.112 - Cellulitis of left axilla
[2023-08-18] MEDS ORDERED: ceFAZolin 1000MG 1,000 MG/7.5 ML SYR IV SCH (15:45)
--- NOTE | 2023-08-18 15:51 | Hospitalist Progress Note ---
Date of Service August 18, 2023 Assessment & Plan (1) S/P left mastectomy: Plan: patient had left-sided mastectomy done on 07/17 Drain removed on 08/05 Patient comes back with redness, swelling, purulent discharge for [address] noted 2 abscesses with associated cellulitis Surgery involved IR drainage of abscess done on 08/17 surgery may do bedside surgical debridement tomorrow Superficial Wound cultures growing MSSA IR wound culture growing staph, awaiting sensitivities Discontinue cefepime and clindamycin. Switch to cefazolin Continue vancomycin until INR wound culture sensitivities available (2) Triple negative breast cancer: Plan: Right -1980 mastectomy Left - Dx 01/2023; ER neg; BRCA gene mutation neg; s/p mastectomy on 07/17/23 (3) Hypertension: Plan: Hold lisinoprilhydrochlorothiazide before going to the OR Plan Disposition: MedSurg DNR/DNI Regular diet, then n.p.o. at midnight VTE PPx: SCDs (will hold chemical DVT PPx for likely surgical debridement 08/19) Admission and Anticipated Discharge Date Admission Date: August 16, 2023 Subjective patient feels well. Had IR drainage of her abscess 08/17 Review of Systems Review of Systems: All systems reviewed & are unremarkable except as noted in Subjective Physical Exam Physical Exam: General: Awake, conversant Heart: S1, S2/regular rate and rhythm, no murmur rubs or gallops Lungs: Clear to auscultation bilaterally. Normal effort Abdomen: Soft/nontender/nondistended. No hepatosplenomegaly Extremities: No clubbing/cyanosis. No edema Behavior: Appropriate, cooperative Results & Data Results & Data Vital Signs (Past 12 Hours) Vital Signs Temp Pulse Resp BP Pulse Ox O2 Del Method 08/18/23 07:39 36.6 C 81 18 121/77 96 Room Air PG Care Time/CCT Total # of Minutes Spent Total Time Spent with Patient: Total time spent is greater than 50% in coordination of care (as documented) at patient's floor/unit and/or counseling patient: Coding Level of Care Code 24325 SUB INP/OBS CARE 2/35MIN Diagnoses S/P left mastectomy Z90.12 Triple negative breast cancer C50.919 Hypertension I10
[2023-08-18] MEDS: ceFAZolin 2000MG 2,000 MG/15 ML SYR IV SCH (18:40)
[2023-08-18] MEDS: COLLAGENASE OINT 30 GM TUBE EXT SCH (20:14)
[2023-08-19] MEDS: ceFAZolin 2000MG 2,000 MG/15 ML SYR IV SCH ×3 (00:56→16:29)
[2023-08-19] MEDS: ACETAMINOPHEN 325 MG TAB PO PRN ×3 (00:56→20:41)
[2023-08-19] MEDS ORDERED: VANCOMYCIN LEVEL ONE (04:00)
[2023-08-19] MEDS: VANCOMYCIN HCL 1,500 MG in SODIUM CHLORIDE 0.9% 500 ML IV SCH (06:22)
[2023-08-19 06:24] LABS: Basophils # (auto) 0.04 K/uL (0.00-0.20); Basophils % (auto) 0.5 %; Eosinophils # (auto) 0.76 K/uL (0.00-0.50); Eosinophils % (auto) 10.1 %; Hemoglobin 9.5 g/dl (12.0-16.0); Immature Granulocytes # (auto) 0.02 K/uL (0.01-0.20); Immature Granulocytes % (auto) 0.3 %; Lymphocytes # (auto) 1.46 K/uL (1.20-3.40); Lymphocytes % (auto) 19.4 %; Mean Corpuscular Hemoglobin 29.9 pg (25.0-34.0); Mean Corpuscular Hgb Conc 32.8 g/dL (32.0-36.0); Mean Corpuscular Volume 91.2 fL (80.0-100.0); Mean Platelet Volume 9.1 fL (9.4-12.4); Monocytes # (auto) 0.77 K/uL (0.11-0.59); Monocytes % (auto) 10.2 %; Neutrophils # (auto) 4.48 K/uL (1.40-6.50); Neutrophils % (auto) 59.5 %; Platelet Count 318 K/uL (130-400); RDW Coefficient of Variation 13.1 % (11.5-14.5); RDW Standard Deviation 43.8 fL (36.4-46.3); Red Blood Count 3.18 M/uL (4.20-5.40); White Blood Count 7.53 K/ul (4.8-10.8)
[2023-08-19 06:41] LABS: BUN Creatinine Ratio 14.3 (10-20); Calcium 8.9 mg/dl (8.6-10.3); Creatinine Clr Calc Pharmacy 136.2 ml/min; Est GFR (African American) 110.6 ml/min; Est GFR (Non-African American) 95.5 ml/min; Potassium 3.7 mmol/L (3.5-5.1)
[2023-08-19] MEDS: ADVANCED PROBIOTIC 1250 MG CAPSULE PO SCH (09:22)
[2023-08-19] MEDS: DOCUSATE SODIUM 100 MG CAP PO SCH (09:24)
[2023-08-19] MEDS: COLLAGENASE OINT 30 GM TUBE EXT SCH ×2 (09:26→20:45)
--- NOTE | 2023-08-19 13:57 | Hospitalist Progress Note ---
Date of Service August 19, 2023 Assessment & Plan (1) S/P left mastectomy: Plan: patient had left-sided mastectomy done on 07/17 Drain removed on 08/05 Patient comes back with redness, swelling, purulent discharge for [address] noted 2 abscesses with associated cellulitis Surgery involved IR drainage of abscess done on 08/17 Surgery did a bedside debridement today All wound cultures growing MSSA Currently on cefazolin Discontinued vancomycin Will switch to p.o. Keflex upon discharge (2) Triple negative breast cancer: Plan: Right -1981 mastectomy Left - Dx 01/2023; ER neg; BRCA gene mutation neg; s/p mastectomy on 07/17/23 (3) Hypertension: Plan: Resume lisinoprilhydrochlorothiazide. Plan Disposition: MedSurg DNR/DNI Regular diet VTE PPx: Lovenox Admission and Anticipated Discharge Date Admission Date: August 16, 2023 Subjective Patient had a bedside debridement today. Denies chest pain or shortness of breath. She feels well overall. Review of Systems Review of Systems: All systems reviewed & are unremarkable except as noted in Subjective Physical Exam Physical Exam: General: Awake, conversant Heart: S1, S2/regular rate and rhythm, no murmur rubs or gallops Lungs: Clear to auscultation bilaterally. Normal effort Abdomen: Soft/nontender/nondistended. No hepatosplenomegaly Extremities: No clubbing/cyanosis. No edema Behavior: Appropriate, cooperative Results & Data Results & Data Vital Signs (Past 12 Hours) Vital Signs Temp Pulse Resp BP Pulse Ox O2 Del Method 08/19/23 07:12 36.3 C L 76 16 126/82 97 Room Air PG Care Time/CCT Total # of Minutes Spent Total Time Spent with Patient: Total time spent is greater than 50% in coordination of care (as documented) at patient's floor/unit and/or counseling patient: Coding Level of Care Code 30198 SUB INP/OBS CARE 2/35MIN Diagnoses S/P left mastectomy Z90.12 Triple negative breast cancer C50.919 Hypertension I10
[2023-08-19] MEDS: LISINOPRIL/HCTZ 10/12.5MG TAB PO SCH (15:03)
[2023-08-19] MEDS: ENOXAPARIN INJ 40 MG/0.4 ML SYR SQ SCH (15:03)
[2023-08-20] MEDS: ACETAMINOPHEN 325 MG TAB PO PRN ×2 (00:52→23:38)
[2023-08-20] MEDS: ceFAZolin 2000MG 2,000 MG/15 ML SYR IV SCH ×4 (00:53→23:38)
[2023-08-20 07:07] LABS: Est GFR (African American) 112.4 ml/min
[2023-08-20] MEDS: DOCUSATE SODIUM 100 MG CAP PO SCH (08:40)
[2023-08-20] MEDS: ADVANCED PROBIOTIC 1250 MG CAPSULE PO SCH (08:41)
[2023-08-20] MEDS: COLLAGENASE OINT 30 GM TUBE EXT SCH ×2 (08:41→20:08)
[2023-08-20] MEDS: ENOXAPARIN INJ 40 MG/0.4 ML SYR SQ SCH (09:28)
[2023-08-20] MEDS: LISINOPRIL/HCTZ 10/12.5MG TAB PO SCH (09:28)
--- NOTE | 2023-08-20 09:53 | Surgery Progress Note ---
Date of Service August 19, 2023 Assessment & Plan (1) Cellulitis: (2) S/P left mastectomy: (3) Breast cancer: (4) Obese body habitus: Plan Post mastectomy in a complex triple negative breast cancer patient who required neoadjuvant CTX and semi-urgent mastectomy due to intolerance to treatment. Now s/p IR drainage of left axillary abscess. Remains afebrile and with stable VS. Local wound care for incision which is healing and new superficial wound she developed over virgin skin at the left axilla which is the area of current cellulitis and abscess. Wash with warm soapy water and apply Santyl to nonhealed areas daily. Cover wounds with dry gauze IV abx Admission and Anticipated Discharge Date Admission Date: August 16, 2023 Subjective Patient was seen and examined this am. she feels decreased tightness/swelling of the left arm. No fevers or chills. Physical Exam Skin: Erythema is fading. Two small wounds at her left axilla in the skin folds. Not associated with the mastectomy incision. One covered with an eschar. Evidence for decreased swelling. Mastectomy incision with an open area underneath skin folds along the anterior axillary line. This was previously noted as superficial necrosis which now has sloughed. This was debrided at the bedside using a forceps. The area was dressed with dry gauze. Results & Data Vital Signs (Past 12 Hours) Vital Signs Temp Pulse Resp BP Pulse Ox O2 Del Method 08/20/23 07:03 36.6 C 74 16 116/74 97 Room Air PG Care Time/CCT Total # of Minutes Spent Total Time Spent with Patient: Total time spent is greater than 50% in coordination of care (as documented) at patient's floor/unit and/or counseling patient: Coding Level of Care Code 42487 Post Operative Follow-Up Diagnoses Cellulitis L03.112 Laterality: left Site of cellulitis: extremity Site of cellulitis of extremity: axilla S/P left mastectomy Z90.12 Breast cancer C50.919 Obese body habitus E66.9 (1) Cellulitis Laterality: left Site of cellulitis: extremity Site of cellulitis of extremity: axilla Qualified Code(s): L03.112 - Cellulitis of left axilla
--- NOTE | 2023-08-20 10:22 | Surgery Progress Note ---
Date of Service August 20, 2023 Assessment & Plan (1) Obese body habitus: (2) Cellulitis: (3) S/P left mastectomy: (4) Triple negative breast cancer: Plan Post mastectomy in a complex triple negative breast cancer patient who required neoadjuvant CTX and semi-urgent mastectomy due to intolerance to treatment. Now s/p IR drainage of left axillary abscess. Remains afebrile and with stable VS. Local wound care for incision which is healing and new superficial wound she de veloped over virgin skin at the left axilla which is the area of current cellulitis and abscess. Wash with warm soapy water and apply Santyl to nonhealed areas daily. Cover wounds with dry gauze. Cultures reveal MSSA. May convert to oral abx equivalent based on SS. Consider Augmentin or Bactrim. Will f/u left axillary US today to confirm no increasing fluid collection. May D/C home if ok. Admission and Anticipated Discharge Date Admission Date: August 16, 2023 Subjective States she notices even less tightness/swelling. Has remained afebrile, without N/V, overall feels well. Physical Exam Skin: [place] [facility] continues to regress and is primarily reduced to the axilla. Previously cellulitic area is now more of a fuentes, hyperpigmented bruising. Swelling significantly reduced. Small are of uncoapted skin at the mastectomy incision is healing slowly. No significant reaccumulation of slough since wound cleaning yesterday. Results & Data Vital Signs (Past 12 Hours) Vital Signs Temp Pulse Resp BP Pulse Ox O2 Del Method 08/20/23 07:03 36.6 C 74 16 116/74 97 Room Air PG Care Time/CCT Total # of Minutes Spent Total Time Spent with Patient: Total time spent is greater than 50% in coordination of care (as documented) at patient's floor/unit and/or counseling patient: Coding Level of Care Code 12617 Post Operative Follow-Up Diagnoses Obese body habitus E66.9 Cellulitis L03.112 Laterality: left Site of cellulitis: extremity Site of cellulitis of extremity: axilla S/P left mastectomy Z90.12 Triple negative breast cancer C50.919 (2) Cellulitis Laterality: left Site of cellulitis: extremity Site of cellulitis of extremity: axilla Qualified Code(s): L03.112 - Cellulitis of left axilla
--- NOTE | 2023-08-20 12:10 | Ultrasound Report ---
US axilla LT HISTORY: 62 years-old Female follow up fluid collection acute pain and swelling of the left upper ar m with possible fluid collection COMPARISON: CT left humerus 08/16/2023 TECHNIQUE: Multiple real-time sonographic images of the left upper arm were obtained assessing graysc dilip appearance and color flow FINDINGS: Complex hypoechoic irregular collection within the subcutaneous tissues of the left axilla/medial lef t upper arm redemonstrated measuring 7.4 x 3.4 x 5.5 cm with peripheral flow and increased echogenici ty within the adjacent subcutaneous tissues. This collection measured 9 cm on the prior CT. IMPRESSION: Persistent cellulitis with fluid collection within the left upper arm measuring up to 7.4 cm suggestive of hematoma versus abscess. ACT 112: Negative or not required by law. The above report was generated using voice recognition software. It may contain grammatical, syntax o r spelling errors. Electronically signed by: Yuriy Sol M.D. 08/20/2023 12:08 PM
--- NOTE | 2023-08-20 16:15 | Hospitalist Progress Note ---
Date of Service August 20, 2023 Assessment & Plan (1) S/P left mastectomy: Plan: patient had left-sided mastectomy done on 07/17 Drain removed on 08/05 Patient comes back with redness, swelling, purulent discharge for [address] noted 2 abscesses with associated cellulitis Surgery involved IR drainage of abscess done on 08/17 Surgery did a bedside debridement 08/19 All wound cultures growing MSSA Currently on cefazolin general surgery ordered an axillary ultrasound that shows a 7.4 cm fluid collection.. Spoke to general surgery after the ultrasound reported. They would want the patient to stay for further drainage of the abscess. (2) Triple negative breast cancer: Plan: Right -1980 mastectomy Left - Dx 01/2023; ER neg; BRCA gene mutation neg; s/p mastectomy on 07/17/23 (3) Hypertension: Plan: Resume lisinoprilhydrochlorothiazide. Plan Disposition: MedSurg DNR/DNI Regular diet VTE PPx: Lovenox Admission and Anticipated Discharge Date Admission Date: August 16, 2023 Subjective Patient feels well. Denies chest pain or shortness of breath. Review of Systems Review of Systems: All systems reviewed & are unremarkable except as noted in Subjective Physical Exam Physical Exam: General: Awake, conversant Heart: S1, S2/regular rate and rhythm, no murmur rubs or gallops Lungs: Clear to auscultation bilaterally. Normal effort Abdomen: Soft/nontender/nondistended. No hepatosplenomegaly Extremities: No clubbing/cyanosis. No edema Behavior: Appropriate, cooperative Results & Data Results & Data Vital Signs (Past 12 Hours) Vital Signs Temp Pulse Pulse Resp BP BP Pulse Ox 08/20/23 15:32 08/20/23 14:46 36.6 C 83 16 112/73 97 08/20/23 07:03 36.6 C 74 16 116/74 97 O2 Del Method 08/20/23 15:32 Room Air 08/20/23 14:46 Room Air 08/20/23 07:03 Room Air PG Care Time/CCT Total # of Minutes Spent Total Time Spent with Patient: Total time spent is greater than 50% in coordination of care (as documented) at patient's floor/unit and/or counseling patient: Coding Level of Care Code 98535 SUB INP/OBS CARE 2/35MIN Diagnoses S/P left mastectomy Z90.12 Triple negative breast cancer C50.919 Hypertension I10
[2023-08-21] MEDS: ENOXAPARIN INJ 40 MG/0.4 ML SYR SQ SCH (08:38)
[2023-08-21] MEDS: LISINOPRIL/HCTZ 10/12.5MG TAB PO SCH (08:39)
[2023-08-21] MEDS: COLLAGENASE OINT 30 GM TUBE EXT SCH (08:39)
[2023-08-21] MEDS: ADVANCED PROBIOTIC 1250 MG CAPSULE PO SCH (08:39)
[2023-08-21] MEDS: ceFAZolin 2000MG 2,000 MG/15 ML SYR IV SCH (08:39)
[2023-08-21] MEDS: DOCUSATE SODIUM 100 MG CAP PO SCH (08:41)
[2023-08-21] MEDS ORDERED: Nursing to Pharmacy Communication STA (08:58)
[2023-08-21] MEDS ORDERED: LIDOCAINE 1%/EPINEPHRINE 1:100,000 20 ML VIAL INFIL ONE (09:15)
--- NOTE | 2023-08-21 12:00 | Surgery Progress Note ---
Date of Service August 21, 2023 Assessment & Plan (1) Abscess of left upper extremity: Plan: Consent was obtained for I&D. I&D performed at the bedside. Copious amounts of thick, purulent fluid was released from the area. The wound was packed with 1/2" gauze,covered with dry gauze and ABD. Santyl and dry gauze is applied to the open area at the lateral mastectomy incision as well as the area that had been excoriated by tape. Admission and Anticipated Discharge Date Admission Date: August 16, 2023 Subjective Patient seen and examined this am. She continues to feel more improved and afebrile. US of the left upper arm reveals a 7cm fluid collection. Physical Exam Constitutional: not ill appearing, not in distress and not diaphoretic Respiratory: normal respiratory effort; no respiratory distress, no labored breathing and does not use accessory muscles Skin: LUE there is less swelling and the cellulitis has regressed substantially. There is a persistently more defined prominent area at this point which seems very likely to be the area of primary fluid collection that remains. This area is now very boggy on palpation as well. Results & Data Vital Signs (Past 12 Hours) Vital Signs Temp Pulse Resp BP Pulse Ox O2 Del Method 08/21/23 07:56 Room Air 08/21/23 07:24 36.5 C 73 16 126/83 96 Room Air PG Care Time/CCT Total # of Minutes Spent Total Time Spent with Patient: Total time spent is greater than 50% in coordination of care (as documented) at patient's floor/unit and/or counseling patient: Coding Level of Care Code 14681 Post Operative Follow-Up Diagnoses Abscess of left upper extremity L02.414
--- NOTE | 2023-08-21 12:08 | Procedure Note ---
Procedure Note Date of Service August 21, 2023 Note The proximal LUE was prepped and draped in typical sterile fashion. 1% Lidocaine with epi was used to anesthetize the skin at the proximal LUE over the area that feels to be the remaining fluid collection. A 2cm incision was made using an 11 blade and a copious amount of purulent fluid was expressed. The wound was probed with a cotton swab to see if there was any significant tunneling and to probe loculations. The wound does extend several cm deep. Tunneling in the superior and medical direction but does not go as far as to communicate with the mastectomy site. After this was completely expressed, the wound was packed with 1/2" packing and covered with gauze. Coding [facility] Procedure Codes (Charges) Indication for Procedure Indication for procedure: Fluid collection left upper extremity
--- NOTE | 2023-08-21 12:23 | Discharge Summary ---
Date of Service August 21, 2023 Admission HPI Per Admitting Provider Ashley is a pleasant 62-year-old female with PMH of breast cancer. She presented for purulent drainage from her left mastectomy site, with increased pain and swelling in the left axilla x3 days. Patient is s/p left-sided mastectomy on 07/17/[address] Billie Grubbs. Patient had drain removed on 08/05 and then noticed a "white pocket" in the left axilla on 08/07. She started using collagenase SANTYL cream on the . She then started to note purulent yellowish, greenish drainage on 08/09, that would run down her arm. Patient was back Thursday shopping on 08/14; she had dressing/tape over the incision site and wore a soft bra to give thing in place; but when she changed the dressing on Thursday she noticed a "baseball sized" red lump on her left upper arm. At present, she notes no pain but describes it as left upper arm "tightness". She denies radiation; no numbness running down the arm. She took Advil and Motrin last night, which helped. She also has been using a bacitracin/neomycin ointment "Vitacilina", which she last applied this morning. No sick contacts. She denies tobacco/alcohol use. Vital stable at time of admission. ED course: Vancomycin 2750 mg IV Cefepime 2000 mg IV NSS 500 mL ROS: Patient endorses cold intolerance, mental fog, back pain (which patient attributes to sitting position with recent travel), swelling in feet / neuropathy, skin irritation (skin is "like paper" per daughter), constipation, neuropathy in the legs (from the knees down) Patient denies fevers, chills, night-sweats, chest pain, cough, SOB, abdominal pain, N/V/D, urinary s/s, burning with urination. Admission Exam Per Admitting Provider General: no acute distress; non-toxic appearing; well-nourished; cooperative HEENT: normocephalic, atraumatic; no scleral icterus; PERRLA w/ EOMs intact; moist mucus membrane; vision and hearing grossly intact Neck: supple; no lymphadenopathy; trachea midline Skin: warm, dry without signs of tenting; no cyanosis; no rashes, bruising, lesions, or erythema noted CV: Double mastectomy; chest wall NTP; RRR; S1/S2 normal; no murmurs/rubs/gallops; pulses intact and symmetric at radial, DP, and PT Lungs: no acute respiratory distress; symmetrical chest wall expansion; clear breath sounds across all lung del real w/o adventitious sounds; no wheezing Left breast/surgical site: Purulent drainage is noted from the site including a 2in eschar at the left axilla; left upper arm has baseball sized redness, swelling, and firmness, and is warm to touch (see photo below); no crepitus on palpation; no subcutaneous emphysema on palpation Left hand: Pulse intact in the radial/ulnar; patient demonstrates ability to wiggle fingers; sensation is grossly intact in the left arm ABD: Soft, NTP; BS present; no rebound/guarding; no ascites; no distention; negative CVA tenderness MSK: no tics or fasciculations; nonpitting edema in the LEs B/L, nonerythematous Neuro: A&Ox3; normal mood and affect; fluent speech; no focal deficits; sensation grossly intact Principal Diagnosis Left mastectomy surgical site MSSA infection with abscess and cellulitis Discharge Exam General: Awake, conversant Heart: S1, S2/regular rate and rhythm, no murmur rubs or gallops Lungs: Clear to auscultation bilaterally. Normal effort Abdomen: Soft/nontender/nondistended. No hepatosplenomegaly Extremities: No clubbing/cyanosis. No edema Behavior: Appropriate, cooperative Discharge Data Allergies Allergy/AdvReac Type Severity Reaction Status Date / Time dexamethasone [From Decadron] Allergy Severe Hives Verified 08/05/23 10:12 iodine Allergy Unknown Hives Verified 08/05/23 10:12 prednisone Allergy Unknown Hives Verified 08/05/23 10:12 Consultations 08/16/23 14:57 Consult General Surgery Routine 08/16/23 15:01 ED Decision to Admit Stat Ordered Studies 08/16/23 13:02 CT humerus LT w con Stat 08/17/23 09:42 IR AD US softtissperc w/gdnce Routine 08/17/23 11:50 US venous doppler LE LT Urgent 08/20/23 09:45 US axilla LT Routine Hospital Course (1) S/P left mastectomy: patient had left-sided mastectomy done on 07/17 Drain removed on 08/05 Patient comes back with redness, swelling, purulent discharge for [address] noted 2 abscesses with associated cellulitis Surgery involved IR drainage of abscess done on 08/17 Surgery did a bedside debridement 08/19 and 08/21 All wound cultures growing MSSA was treated with cefazolin. Will discharge the patient on Bactrim per surgery recommendation. after bedside debridement today, surgery cleared the patient for discharge (2) Triple negative breast cancer: Right -1981 mastectomy Left - Dx 01/2023; ER neg; BRCA gene mutation neg; s/p mastectomy on 07/17/23 (3) Hypertension: Resume lisinoprilhydrochlorothiazide. Plan Disposition: MedSurg DNR/DNI Regular diet VTE PPx: Lovenox Total Time Total Time Spent Total Time Spent (In Minutes): 35 Discharge Plan Discharge Items Patient Disposition: Home - Self-Care Reason For Visit: L MASTECTOMY SURGICAL SITE INFECTION Discharge Diagnosis: Left mastectomy surgical site MSSA infection with abscess and cellulitis Activity: Resume your previous activity Non-emergency contact: Primary Care Provider Call non-emergency contact if: you have any medication questions and your symptoms worsen Follow-up/Referrals: Jose Antonio Fraire [Primary Care Provider] - 08/24/23 9:20 am Diet: Regular Addtl Attending Provider Instructions: Advised to follow-up with PCP in 1 week -- Advised to call surgery next week as per instructions. Pending Studies at Discharge: No Stand-Alone Forms: My [facility] Medications and DC Order Prescriptions: New sulfamethoxazole-trimethoprim [Bactrim DS] 800-160 mg tablet 1 tab PO BID 5 Days Qty: 10 0RF Continued docusate sodium [Colace] 100 mg capsule 100 mg PO DAILY aspirin 81 mg tablet,delayed release (DR/EC) 81 mg PO DAILY Hold Instructions: Resume on 03/09/23. May resume on Thursday if you do not notice heavy swelling or bruising at the surgical site. lisinopril-hydrochlorothiazide 10-12.5 mg tablet 1 tab PO QAM Santyl 250 unit/gram ointment 1 applic topical DAILY Qty: 90 0RF Discharge Orders: Discharge Order (Routine); Ordered 08/21/23 Ordered By: Evan Olvera/Other Patient Handouts: Cellulitis Dc Admission Data Admit Date/Time: 08/16/23 16:21 Attending Provider: Evan Rios Admit Provider: Stu Byers Primary Care Provider: Jose Antonio Fraire Other Providers: Michael Frances; Stu Byers Other Interventions: Discharge Summary Assessment (RN) Last Done: 08/21/23 12:28 Coding Level of Care Code 73826 INP/OBS DISCH >30 MIN Diagnoses S/P left mastectomy Z90.12 Triple negative breast cancer C50.919 Hypertension I10
== END 2023-08-21 14:09 | disposition home or self-care (01) | DRG 857 ==
LOC: ED 12:06 → SUATTDRO 16:21 → EDINP 16:21 → 3E 21:12